=== PATIENT | female | born 1960 | race Caucasian/White ===

== ENCOUNTER → 2021-08-12 10:57 | Outpatient (CLI) | payer OTHER, SELFPAY ==
--- NOTE | 2021-08-12 11:05 | DI.RAD.S_ITS ---
PROCEDURE: XR CERVICAL SPINE 2V OR 3V INDICATIONS: neck pain TECHNIQUE: 3 view(s) of the cervical spine were acquired. COMPARISON: None. FINDINGS: Bones: No fractures or dislocations to the C7-T1 level. The lateral masses of C1 appear intact on the odontoid view. No suspicious bony lesions. There is straightening of normal cervical curvature with trace retrolisthesis of C5 on C6. Moderate disc space narrowing is present C5-6, mild C4-5. Anterior osteophytes are most notable at C4 through C6. Multilevel uncovertebral arthropathy is present. Soft tissues: No prevertebral soft tissue swelling. IMPRESSION: Degenerative changes most notable at C5-6. Dictated by: Aye James M.D. on 08/12/2021 at 16:31 Approved by: Aye James M.D. on 08/12/2021 at 16:33
== END ==
PROVIDERS: PCP Family Medicine; Referring Provider Family Medicine; Visit Provider Family Medicine
DX: M54.2 Cervicalgia (principal); G89.29 Other chronic pain; M54.10 Radiculopathy, site unspecified
CPT/HCPCS: 72040